=== PATIENT | female | born 1940 | race Caucasian/White ===

== ENCOUNTER 2019-12-19 00:22 | Inpatient (IN) | payer MEDICARE ==
[~2019-12-19] VITALS: Ht 165.1 cm; Wt 72.0 kg
--- NOTE | 2019-12-19 00:52 | NUR ---
LABS DRAWN AND SENT TO LAB. PATIENT PLACED IN BED ON MONITOR. DENIES ANY FURTHER NEEDS AT THIS TIME. AT BEDSIDE WITH PATIENT.
[2019-12-19 01:04] LABS: MEAN CORPUSCULAR HEMOGLOBIN 27.3 pg (27.0-34.8); MEAN CORPUSCULAR HGB CONC 32.4 g/dL (32.4-35.8); RED BLOOD COUNT 5.31 x10^6/uL (3.82-5.3); RED CELL DISTRIBUTION WIDTH 24.2 % (9.6-15.2)
[2019-12-19 01:07] LABS: ALBUMIN 3.8 g/dL (3.4-5.0); ANION GAP 6 mmol/L (5-15); CHLORIDE 111 mmol/L (98-107); CREATININE 1.06 mg/dL (0.55-1.02)
[2019-12-19 01:10] LABS: TROPONIN I < 0.015 ng/mL (0.000-0.045)
[2019-12-19 01:12] LABS: MD YES; MEAN PLATELET VOLUME 10.5 fL (7.4-10.4); PLATELET COUNT 652 x10^3/uL (130-400)
[2019-12-19 01:15] LABS: BANDS%(MANUAL) 2 % (0-7); EOS% (MANUAL) 3 % (1-7); LYMPH#(MANUAL) 2.79 x10^3/uL (1-3.4); LYMPHS% (MANUAL) 14 % (22-44); METAMYELOCYTES% (MANUAL) 2 % (0-1); MONOS#(MANUAL) 1.79 x10^3/uL (0.3-2.7); MONOS% (MANUAL) 9 % (2-9)
[2019-12-19 01:16] LABS: ANISOCYTOSIS 1+; MICROCYTOSIS 1+
[2019-12-19 01:17] LABS: OVALOCYTES 1+; PMNS WITH VACUOLES 1+; POLYCHROMASIA 1+
[2019-12-19 01:20] LABS: <PLATELET ESTIMATE> INCREASED; LARGE PLATELETS 1+
[2019-12-19 01:21] LABS: MYELOCYTES% (MANUAL) 2 % (0-0); SEG#(MANUAL) 13.13 x10^3/uL (1.8-6.8); SEGS% (MANUAL) 66 % (42-75)
[2019-12-19 01:22] LABS: OTHER CELLS % (MANUAL) 2 % (0-0)
--- NOTE | 2019-12-19 03:29 | NUR ---
PATIENT RESTING IN BED, UPDATED ON PLAN OF CARE. WARM BLANKETS GIVEN. LIGHTS DIMMED. CALL LIGHT WITHIN REACH. BED IN LOWEST LOCKED POSITION.
--- NOTE | 2019-12-19 03:37 | NUR ---
ORDER PLACED FOR HOSPITAL BED. WILL TRANSFER PATIENT OFF [facility] WHEN BED ARRIVES.
[2019-12-19] MEDS ORDERED: ONDANSETRON 2MG/ML, 2ML IVPush PRN (04:00)
[2019-12-19] MEDS ORDERED: NITROGLYCERIN OINT 2%, 1GM TP ONE ×2 (04:00)
[2019-12-19] MEDS ORDERED: hydrALAzine 20 MG/ML, 1ML IVPush PRN (04:00)
--- NOTE | 2019-12-19 04:00 | NUR ---
nitro paste applied to patient to improve chest pain. patient verablized understanding of side effects and possible complications. call light within reach. updated on plan of care. will continue to monitor.
--- NOTE | 2019-12-19 05:05 | NUR ---
LABS COLLECTED PRIOR TO PATIENT ARRIVING ON UNIT. REPORT TO ONCOMING RN, NO FURTHER QUESTIONS NOTED.
[2019-12-19 05:39] VITALS: BP 136/86
[2019-12-19 05:42] VITALS: BP 130/86
[2019-12-19 06:02] LABS: TROPONIN I < 0.015 ng/mL (0.000-0.045)
[2019-12-19] MEDS: CARVEDILOL 3.125 MG TABLET PO SCH ×2 (06:14→17:46)
[2019-12-19] MEDS: ISOSORBIDE MONONITRATE ER 30 MG TABLET PO SCH (08:59)
[2019-12-19] MEDS ORDERED: PANTOPRAZOLE 40 MG IV IVPush SCH (09:00)
[2019-12-19 09:40] VITALS: BP 131/84
[2019-12-19] MEDS ORDERED: REGADENOSON 0.4 MG/5 ML SYRINGE ONE (10:46)
[2019-12-19 15:50] VITALS: BP 98/60
[2019-12-19 17:46] VITALS: BP 161/80
[2019-12-19 20:54] VITALS: BP 100/67
[2019-12-19] MEDS: ATORVASTATIN 10 MG TABLET PO SCH (21:27)
[2019-12-19 22:09] LABS: MICROSCOPIC AUTO
[2019-12-20 00:33] VITALS: BP 103/69
[2019-12-20 05:21] VITALS: BP 115/79
[2019-12-20] MEDS: CARVEDILOL 3.125 MG TABLET PO SCH ×2 (05:24→16:51)
[2019-12-20 05:33] LABS: MEAN CORPUSCULAR HEMOGLOBIN 27.2 pg (27.0-34.8); MEAN CORPUSCULAR HGB CONC 32.4 g/dL (32.4-35.8); MEAN PLATELET VOLUME 10.2 fL (7.4-10.4); PLATELET COUNT 517 x10^3/uL (130-400); RED BLOOD COUNT 4.98 x10^6/uL (3.82-5.3); RED CELL DISTRIBUTION WIDTH 23.4 % (9.6-15.2)
[2019-12-20 05:34] LABS: ANION GAP 3 mmol/L (5-15); CALCIUM 8.5 mg/dL (8.5-10.1); CHLORIDE 110 mmol/L (98-107); CREATININE 1.09 mg/dL (0.55-1.02)
[2019-12-20 06:08] LABS: MD YES
[2019-12-20 06:11] LABS: ANISOCYTOSIS 1+; BAND#(MANUAL) 0.71 x10^3/uL; BANDS%(MANUAL) 4 % (0-7); EOS#(MANUAL) 0.71 x10^3/uL (0.0-0.4); EOS% (MANUAL) 4 % (1-7); LYMPH#(MANUAL) 1.96 x10^3/uL (1-3.4); LYMPHS% (MANUAL) 11 % (22-44); METAMYELOCYTES# (MANUAL) 0.18 x10^3/uL (0-0); METAMYELOCYTES% (MANUAL) 1 % (0-1); MICROCYTOSIS 1+; MONOS#(MANUAL) 1.42 x10^3/uL (0.3-2.7); MONOS% (MANUAL) 8 % (2-9); OVALOCYTES 1+; POLYCHROMASIA 1+; SEG#(MANUAL) 12.82 x10^3/uL (1.8-6.8); SEGS% (MANUAL) 72 % (42-75)
[2019-12-20 06:12] LABS: <PLATELET ESTIMATE> INCREASED; GIANT PLATELETS 1+; LARGE PLATELETS 1+
[2019-12-20 09:23] VITALS: BP 106/69
[2019-12-20] MEDS: ISOSORBIDE MONONITRATE ER 30 MG TABLET PO SCH (09:45)
[2019-12-20] MEDS ORDERED: FUROSEMIDE 20 MG TABLET PO ONE (10:00)
[2019-12-20] MEDS: PANTOPRAZOLE 40MG TABLET PO SCH (10:37)
[2019-12-20 13:44] VITALS: BP 107/73
[2019-12-20 16:49] VITALS: BP 143/73
[2019-12-20] MEDS: ATORVASTATIN 10 MG TABLET PO SCH (20:19)
[2019-12-20 20:23] VITALS: BP 125/76
[2019-12-21 01:07] VITALS: BP 142/81
[2019-12-21] MEDS: CARVEDILOL 3.125 MG TABLET PO SCH ×2 (05:16→16:45)
[2019-12-21] MEDS: PANTOPRAZOLE 40MG TABLET PO SCH (05:16)
[2019-12-21 07:12] LABS: ALANINE AMINOTRANSFERASE 16 U/L (12-78); ALBUMIN 3.3 g/dL (3.4-5.0); ANION GAP 9 mmol/L (5-15); CALCIUM 8.4 mg/dL (8.5-10.1); CHLORIDE 108 mmol/L (98-107); CREATININE 1.07 mg/dL (0.55-1.02)
[2019-12-21 07:14] LABS: ALKALINE PHOSPHATASE 92 U/L (45-117); BILIRUBIN,TOTAL 0.6 mg/dL (0.2-1.0); MEAN CORPUSCULAR HEMOGLOBIN 27.1 pg (27.0-34.8); MEAN CORPUSCULAR HGB CONC 32.3 g/dL (32.4-35.8); MEAN PLATELET VOLUME 10.7 fL (7.4-10.4); PLATELET COUNT 563 x10^3/uL (130-400); RED BLOOD COUNT 5.05 x10^6/uL (3.82-5.3); RED CELL DISTRIBUTION WIDTH 23.9 % (9.6-15.2); TOTAL PROTEIN 6.7 g/dL (6.4-8.2)
[2019-12-21 07:26] LABS: MD YES
[2019-12-21 07:27] LABS: BAND#(MANUAL) 0.68 x10^3/uL; BANDS%(MANUAL) 4 % (0-7); EOS#(MANUAL) 0.51 x10^3/uL (0.0-0.4); EOS% (MANUAL) 3 % (1-7); METAMYELOCYTES# (MANUAL) 0.34 x10^3/uL (0-0); METAMYELOCYTES% (MANUAL) 2 % (0-1)
[2019-12-21 07:28] LABS: ANISOCYTOSIS 1+; LYMPHS% (MANUAL) 13 % (22-44); MICROCYTOSIS 1+; MONOS#(MANUAL) 1.01 x10^3/uL (0.3-2.7); MONOS% (MANUAL) 6 % (2-9); OVALOCYTES 1+; POLYCHROMASIA 1+; SEG#(MANUAL) 12.17 x10^3/uL (1.8-6.8); SEGS% (MANUAL) 72 % (42-75)
[2019-12-21 07:30] LABS: <PLATELET ESTIMATE> INCREASED; GIANT PLATELETS 1+; LARGE PLATELETS 1+
[2019-12-21 07:35] VITALS: BP 126/81
[2019-12-21] MEDS: DOXYCYCLINE 100MG TABLET PO SCH ×2 (09:06→20:43)
[2019-12-21] MEDS: ISOSORBIDE MONONITRATE ER 30 MG TABLET PO SCH (09:06)
[2019-12-21] MEDS: CEFTRIAXONE PMX 1GM/50ML 50 ML IV SCH (09:07)
[2019-12-21 13:30] VITALS: BP 141/57
[2019-12-21] MEDS: HEPARIN 5,000 UNITS/ML, 1ML SQ SCH (16:45)
[2019-12-21 19:56] VITALS: BP 150/71
[2019-12-21] MEDS: ATORVASTATIN 10 MG TABLET PO SCH (20:43)
[2019-12-22] MEDS: HEPARIN 5,000 UNITS/ML, 1ML SQ SCH ×4 (00:58→23:52)
[2019-12-22 01:01] VITALS: BP 169/84
[2019-12-22 06:23] LABS: ANION GAP 5 mmol/L (5-15); CALCIUM 8.5 mg/dL (8.5-10.1); CHLORIDE 111 mmol/L (98-107); CREATININE 1.22 mg/dL (0.55-1.02)
[2019-12-22 06:39] VITALS: BP 107/69
[2019-12-22] MEDS: CARVEDILOL 3.125 MG TABLET PO SCH ×2 (06:42→18:10)
[2019-12-22] MEDS: PANTOPRAZOLE 40MG TABLET PO SCH (06:42)
[2019-12-22 06:44] LABS: BASOPHILS # (AUTO) 0.07 x10^3/uL (0-0.1); BASOPHILS % (AUTO) 0 % (0-1); EOSINOPHILS # (AUTO) 0.41 x10^3/uL (0-0.4); EOSINOPHILS % (AUTO) 2 % (1-7); LYMPHOCYTES # (AUTO) 2.12 x10^3/uL (1-3.4); LYMPHOCYTES % (AUTO) 12 % (22-44); MD SCAN; MONOCYTES # (AUTO) 1.62 x10^3/uL (0.2-0.8); MONOCYTES % (AUTO) 9 % (2-9); NEUTROPHILS # (AUTO) 13.27 x10^3/uL (1.8-6.8); NEUTROPHILS % (AUTO) 76 % (42-75)
[2019-12-22 08:19] LABS: MEAN CORPUSCULAR HEMOGLOBIN 26.9 pg (27.0-34.8); MEAN CORPUSCULAR HGB CONC 32.4 g/dL (32.4-35.8); MEAN PLATELET VOLUME 10.4 fL (7.4-10.4); PLATELET COUNT 560 x10^3/uL (130-400); RED BLOOD COUNT 5.13 x10^6/uL (3.82-5.3); RED CELL DISTRIBUTION WIDTH 24.3 % (9.6-15.2)
[2019-12-22] MEDS: CEFTRIAXONE PMX 1GM/50ML 50 ML IV SCH (09:14)
[2019-12-22] MEDS: DOXYCYCLINE 100MG TABLET PO SCH ×2 (09:15→20:33)
[2019-12-22] MEDS: ISOSORBIDE MONONITRATE ER 30 MG TABLET PO SCH (09:15)
[2019-12-22 15:53] VITALS: BP 103/67
[2019-12-22] MEDS: ATORVASTATIN 10 MG TABLET PO SCH (20:33)
[2019-12-22 20:40] VITALS: BP 122/97
[2019-12-23 01:46] VITALS: BP 109/69
[2019-12-23] MEDS: PANTOPRAZOLE 40MG TABLET PO SCH (05:49)
[2019-12-23] MEDS: CARVEDILOL 3.125 MG TABLET PO SCH (05:49)
[2019-12-23 05:50] VITALS: BP 113/64
[2019-12-23 06:13] LABS: MEAN CORPUSCULAR HEMOGLOBIN 27.5 pg (27.0-34.8); MEAN CORPUSCULAR HGB CONC 32.7 g/dL (32.4-35.8); MEAN PLATELET VOLUME 10.3 fL (7.4-10.4); PLATELET COUNT 569 x10^3/uL (130-400); RED CELL DISTRIBUTION WIDTH 23.9 % (9.6-15.2)
[2019-12-23 06:17] LABS: CHLORIDE 112 mmol/L (98-107)
[2019-12-23 06:32] LABS: ANION GAP 5 mmol/L (5-15); CALCIUM 8.8 mg/dL (8.5-10.1); CREATININE 1.15 mg/dL (0.55-1.02)
[2019-12-23 06:56] LABS: BASOPHILS # (AUTO) 0.12 x10^3/uL (0-0.1); BASOPHILS % (AUTO) 1 % (0-1); EOSINOPHILS # (AUTO) 0.42 x10^3/uL (0-0.4); EOSINOPHILS % (AUTO) 3 % (1-7); LYMPHOCYTES % (AUTO) 13 % (22-44); MD SCAN; MONOCYTES # (AUTO) 1.42 x10^3/uL (0.2-0.8); MONOCYTES % (AUTO) 9 % (2-9); NEUTROPHILS # (AUTO) 12.16 x10^3/uL (1.8-6.8); NEUTROPHILS % (AUTO) 75 % (42-75)
[2019-12-23 08:42] VITALS: BP 103/64
[2019-12-23] MEDS: ISOSORBIDE MONONITRATE ER 30 MG TABLET PO SCH (09:13)
[2019-12-23] MEDS: CEFTRIAXONE PMX 1GM/50ML 50 ML IV SCH (09:13)
[2019-12-23] MEDS: DOXYCYCLINE 100MG TABLET PO SCH (09:13)
[2019-12-23] MEDS: HEPARIN 5,000 UNITS/ML, 1ML SQ SCH (09:15)
[2019-12-23 13:44] VITALS: BP 115/58
[2019-12-23] MEDS ORDERED: CEFD300C37 PO (15:03)
[2019-12-23] MEDS ORDERED: CARV3.1212 PO (15:03)
[2019-12-23] MEDS ORDERED: ISOS30TA8 PO (15:03)
[2019-12-23] MEDS ORDERED: ATOR10TA9 PO (15:03)
[2019-12-23] MEDS ORDERED: DOXY100T PO (15:03)
[2019-12-23] MEDS ORDERED: ASPI-496 PO (15:04)
== END 2019-12-23 17:27 | disposition home or self-care (01) | DRG 177 ==
LOC: ED 00:56 → EDIP 03:19 → OBSVTOIN 03:19 → INTOOBSV 03:19 → 5SO 05:25 → 4NW 12-20 13:35
PROVIDERS: ADMIT Internal Medicine; ATTEND Internal Medicine
DX: U07.1 COVID-19 (principal); J96.01 Acute respiratory failure with hypoxia; J12.89 Other viral pneumonia; E78.5 Hyperlipidemia, unspecified; I11.0 Hypertensive heart disease with heart failure; I50.9 Heart failure, unspecified; I25.10 Atherosclerotic heart disease of native coronary artery without angina pectoris; I25.2 Old myocardial infarction; Z79.899 Other long term (current) drug therapy; Z90.49 Acquired absence of other specified parts of digestive tract; Z88.0 Allergy status to penicillin
CPT/HCPCS: 36415; 71045; 71275; 78452; 80048; 80053; 81001; 82040; 83735; 84100; 84484; 85025; 85379; 86738; 87040; 87086; 87449; 93005; 93017; 93306; 96374; 99285; G0378; J0696; J1644; J2785; A9502; C9113; C9898; U0001-CS